=== PATIENT | female | born 1980 | race African-American/Black ===

== ENCOUNTER 2018-09-24 17:20 | Emergency (ER) | payer OTHER ==
[~2018-09-24] VITALS: Ht 175.3 cm; Wt 87.2 kg
[2018-09-24 17:53] VITALS: BP 125/75
[2018-09-24] MEDS ORDERED: METOCLOPRAMIDE HCL 10 MG/2 ML VIAL. IV ONE (18:45)
[2018-09-24] MEDS ORDERED: IOHEXOL 300 MG/ML 75 ML VIAL. IV ONE (19:00)
[2018-09-24] MEDS ORDERED: KETOROLAC 15 MG/ML VIAL. IV ONE (19:00)
[2018-09-24] MEDS ORDERED: IV NORMAL SALINE 1,000ML 1,000 ML IV ONE ×2 (19:00)
[2018-09-24 19:25] LABS: BILIRUBIN,URINE NEG (NEG); CLARITY,URINE HAZY; COLOR,URINE YELLOW; GLUCOSE,URINE NEG (NEG); NITRITE,URINE NEG (NEG); UROBILINOGEN,URINE 0.2 mg/dL (0.2 mg/dL)
[2018-09-24 19:26] LABS: BACTERIA,URINE FEW /HPF (0-FEW); SQUAMOUS EPITHELIAL CELL,UR OCC /LPF; WBC,URINE 0 /HPF (0-4)
[2018-09-24 19:44] LABS: WHITE BLOOD COUNT 4.3 x10^3/uL (4.0-11.0)
[2018-09-24 19:45] LABS: HEMOGLOBIN 11.6 g/dL (12.0-15.5); MEAN CORPUSCULAR HEMOGLOBIN 25 pg (25-35); MEAN CORPUSCULAR HGB CONC 31 g/dL (31-37); MEAN CORPUSCULAR VOLUME 80 fL (79-100); PLATELET COUNT 269 x10^3/uL (140-400); RED CELL DISTRIBUTION WIDTH 15.5 % (11.5-14.5)
[2018-09-24 19:46] LABS: BASO % 1 % (0-3); EOS # 0.1 x10^3/uL (0.0-0.7); EOS % 3 % (0-3); LYMPH # 1.6 x10^3/uL (1.0-4.8); LYMPH % 38 % (24-48); MONO # 0.3 x10^3/uL (0.0-1.1); MONO % 8 % (0-9); NEUT # 2.2 x10^3uL (1.8-7.7); NEUT % 51 % (31-73)
--- NOTE | 2018-09-24 19:48 | PHYS DOC ---
Past History Past Medical History: Cancer, Hypertension, Other (PCOS) Past Surgical History: No Surgical History Alcohol Use: None Drug Use: None Adult General Chief Complaint Chief Complaint: ABDOMINAL PAIN HPI HPI Patient is a 38-year-old female with a past medical history of colorectal cancer and PCOS who presents with 1 week of increased groin pain that radiates to her lower back and sacrum. She describes the pain is crampy, dull, achy, and constant. She rates the pain as a 7 out of 10 in intensity. She has tried ibuprofen 600 mg twice a day with minimal relief of pain. In addition, she reports brown colored spotting over this same time. Her last menstrual period began on 05 September and ended 11 September. In addition to these symptoms she reports increased dizziness and nausea over the last 2 days. She reports several urinary tract infections and irritable bowel syndrome-like symptoms ever since she was diagnosed with colon cancer and subsequently had her sigmoid colon resected. She reports subjective fever and chills over the last 2 days. She denies any vomiting, shortness of breath, or chest pain. Reports also with some low back pain with radiation down leg. Review of Systems Review of Systems Constitutional: Reports subjective fever and chills Eyes: Denies redness or eye pain HENT: Denies nasal congestion or sore throat Respiratory: Denies cough or shortness of breath Cardiovascular: Denies chest pain or palpitations GI: Denies abdominal pain. Reports nausea, but no vomiting : Crampy pelvic pain b/l, radiating to lower back. Mild, brown discharge. Musculoskeletal: lower back/sacral pain. Integument: Denies rash or skin lesions Neurologic: Reports headache that is consistent with chronic headaches, focal weakness or sensory changes Complete systems were reviewed and found to be within normal limits, except as documented in this note. Current Medications Current Medications Current Medications Medications (Trade) Dose Ordered Sig/Phil Start Time Stop Time Status Last Admin Dose Admin Iohexol (Omnipaque 300 Mg/ml) 75 ml 1X ONCE 09/24/18 19:00 09/24/18 19:01 DC Ketorolac Tromethamine (Toradol 15mg Vial) 15 mg 1X ONCE 09/24/18 19:00 09/24/18 19:01 DC 09/24/18 19:01 15 MG Metoclopramide HCl (Reglan Vial) 10 mg 1X ONCE 09/24/18 18:45 09/24/18 18:55 DC 09/24/18 19:01 10 MG Sodium Chloride 1,000 ml @ 1,000 mls/hr 1X ONCE 09/24/18 19:00 09/24/18 19:59 Allergies Allergies Allergies Coded Allergies Type Severity Reaction Last Updated Verified acetaminophen Allergy Unknown RASH 09/24/18 Yes hydromorphone Allergy Unknown 09/24/18 Yes Physical Exam Physical Exam Constitutional: Well developed, well nourished, no acute distress, non-toxic appearance HENT: Normocephalic, atraumatic, oropharynx moist Eyes: PERRL, EOMI, conjunctiva normal, no discharge Neck: Normal range of motion, no tenderness, supple Cardiovascular: Heart rate normal, regular rhythm Lungs & Thorax: Bilateral breath sounds clear to auscultation, no wheezing Abdomen: Soft, right lower quadrant pain on palpation [employer]: Plant Care Worker RN, External genitalia normal, scant brown discharge noted in vaginal vault, no CMT, right adenexal fullness and tenderness on palpation noted Skin: Warm, dry, no erythema, no rash Back: Right paraspinal lumbar tenderness, no CVA tenderness Extremities: No tenderness, ROM intact, no edema Neurologic: Alert and oriented X 3, normal motor function, normal sensory function, no focal deficits noted Psychologic: Affect normal, judgement normal, mood normal Current Patient Data Vital Signs Vital Signs Date Time Temp Pulse Resp B/P (MAP) Pulse Ox O2 Delivery O2 Flow Rate FiO2 09/24/18 17:53 98.1 101 18 98 Room Air Lab Results Laboratory Tests Test 09/24/18 18:55 Urine Collection Type Unknown Urine Color Yellow Urine Clarity Hazy Urine pH 6.0 Urine Specific Fabens 1.025 Urine Protein Neg (NEG-TRACE) Urine Glucose (UA) Neg mg/dL (NEG) Urine Ketones (Stick) Neg mg/dL (NEG) Urine Blood Large (NEG) Urine Nitrite Neg (NEG) Urine Bilirubin Neg (NEG) Urine Urobilinogen Dipstick 0.2 mg/dL (0.2 mg/dL) Urine Leukocyte Esterase Neg (NEG) Urine RBC 3-5 /HPF (0-2) Urine WBC 0 /HPF (0-4) Urine Squamous Epithelial Cells Occ /LPF Urine Bacteria Few /HPF (0-FEW) EKG EKG [] Radiology/Procedures Radiology/Procedures PROCEDURE: CT ABD PELV W/ IV CONTRST ONLY CT abdomen and pelvis with contrast. HISTORY: Right lower quadrant pain, cramping, nausea, chills CT scan of the abdomen and pelvis was done using Omnipaque contrast. Lung bases are clear. There is no effusion. A liver lesion is not identified. Spleen and adrenal glands are normal. Pancreas is normal in appearance. There is no mass or hydronephrosis in the kidneys. There is no adenopathy or ascites. There is moderate stool at the rectum. There are densities throughout the colon something the patient ingested. There is no small bowel obstruction. Appendix is normal. Uterus and left ovary are normal. The right ovary is anterior to the uterus with a prominent cyst measuring 5.2 x 3.5 x 4.2 cm. There is no calcified gallstone or gallbladder wall thickening. IMPRESSION: 1. Normal appendix. 2. Prominent right ovarian cyst anterior to the uterus. Electronically signed by: Osmar Odell MD (09/24/2018 8:41 PM) [facility] DICTATED AND SIGNED BY: OSMAR ODELL MD DATE: 09/24/182040 CC: HARRY,ANKUR; JESS RIOS DO ~ PROCEDURE: US PELVIS W/TV Transabdominal and transvaginal ultrasound the pelvis. HISTORY: Right adnexal pain Transabdominal ultrasound was used to evaluate the bladder. There is a large cyst anterior to the uterus cephalad to the bladder measuring 5.2 x 3.1 cm. The right ovary is along the superior margin of the cyst. There is flow in the right ovary with color imaging and Doppler. Transvaginal imaging was performed for further evaluation. There are multiple nabothian cysts at the cervix. Uterus is normal in size and appearance. Endometrium was 2 mm. Right ovary measured 1.5 x 1.6 x 1.3 cm. The prominent ovarian cyst is noted extending off the margin of the ovary. There is not evidence of torsion. Left ovary was normal measuring 2.6 x 1.4 x 1.5 cm. There is flow in the left ovary with color imaging and Doppler. IMPRESSION: 1. Normal uterus with nabothian cysts at the cervix. 2. Normal left ovary. 3. Prominent cyst extending off the right ovary, there is flow in the right ovary without torsion. Electronically signed by: Osmar Odell MD (09/24/2018 9:25 PM) [facility] DICTATED AND SIGNED BY: OSMAR ODELL MD DATE: 09/24/182124 CC: PCP,NO; JESS RIOS DO ~[] Course & Med Decision Making Course & Med Decision Making Patient is a 38 year-old female with past medical history of colorectal cancer and PCOS who presents with crampy pelvic pain of 1 week duration. Due to patient risk factors and right lower quadrant tenderness to palpation on exam, CT scan of the abdomen and pelvis was ordered which showed a right ovarian cyst, but no other concerning abnormalities. Ultrasound was also ordered and did not show ovarian torsion, or any other abnormalities. IV Toradol was administered to help control pain. Zofran and famotidine also given. Patient stable for discharge with outpatient follow-up with PCP. Discussed findings and plan with patient and family, who acknowledge understanding and agreement. Dragon Disclaimer Dragon Disclaimer This electronic medical record was generated, in whole or in part, using a voice recognition dictation system. Departure Departure: Impression: Primary Impression: Abdominal pain Additional Impressions: Ovarian cyst Back pain Disposition: 01 HOME, SELF-CARE Condition: STABLE Referrals: PCP,ANKUR (PCP) Patient Instructions: Abdominal Pain (Nonspecific), Back Pain, Adult, [id number], Ovarian Cyst, [id number], Sciatica, [id number] Scripts Ondansetron (ONDANSETRON ODT) 4 Mg Tab.rapdis 1 TAB PO PRN Q6-8HRS PRN for NAUSEA, #16 TAB Prov: JESS RIOS DO 09/24/18 Orphenadrine Citrate (ORPHENADRINE CITRATE) 100 Mg Tablet.er 1 TAB PO BID PRN for MUSCLE PAIN, #14 TAB 0 Refills Prov: JESS RIOS DO 09/24/18 Hydrocodone/Ibuprofen (HYDROCODONE-IBUPROFEN 7.5-200 ) 1 Each Tablet 1 TAB PO PRN Q6HRS PRN for PAIN, #14 TAB 0 Refills Prov: JESS RIOS DO 09/24/18 Problem Qualifiers Primary Impression: Abdominal pain Abdominal location: right lower quadrant Qualified Codes: R10.31 - Right lower quadrant pain Additional Impressions: Ovarian cyst Laterality: right Qualified Codes: N83.201 - Unspecified ovarian cyst, right side Back pain Back pain location: low back pain Chronicity: acute Back pain laterality: right Sciatica presence: with sciatica Sciatica laterality: sciatica of right side Qualified Codes: M54.41 - Lumbago with sciatica, right side JESS RIOS DO Sep 24, 2018 19:48
[2018-09-24 20:11] LABS: U PREG PATIENT NEGATIVE (NEG)
[2018-09-24 20:14] LABS: ALBUMIN 3.3 g/dL (3.4-5.0); ALBUMIN/GLOBULIN RATIO 0.8 (1.0-1.7); CALCIUM 9.4 mg/dL (8.5-10.1); CREATININE 1.1 mg/dL (0.6-1.0); GFR 66.6; MAGNESIUM 1.7 mg/dL (1.8-2.4); POTASSIUM 3.2 mmol/L (3.5-5.1); TOTAL BILIRUBIN 0.2 mg/dL (0.2-1.0); TOTAL PROTEIN 7.3 g/dL (6.4-8.2)
--- NOTE | 2018-09-24 20:44 | RAD ---
CT abdomen and pelvis with contrast. HISTORY: Right lower quadrant pain, cramping, nausea, chills CT scan of the abdomen and pelvis was done using Omnipaque contrast. Lung bases are clear. There is no effusion. A liver lesion is not identified. Spleen and adrenal glands are normal. Pancreas is normal in appearance. There is no mass or hydronephrosis in the kidneys. There is no adenopathy or ascites. There is moderate stool at the rectum. There are densities throughout the colon something the patient ingested. There is no small bowel obstruction. Appendix is normal. Uterus and left ovary are normal. The right ovary is anterior to the uterus with a prominent cyst measuring 5.2 x 3.5 x 4.2 cm. There is no calcified gallstone or gallbladder wall thickening. IMPRESSION: 1. Normal appendix. 2. Prominent right ovarian cyst anterior to the uterus. Electronically signed by: Osmar Murphy MD (09/24/2018 8:41 PM) [facility]
--- NOTE | 2018-09-24 21:28 | RAD ---
Transabdominal and transvaginal ultrasound the pelvis. HISTORY: Right adnexal pain Transabdominal ultrasound was used to evaluate the bladder. There is a large cyst anterior to the uterus cephalad to the bladder measuring 5.2 x 3.1 cm. The right ovary is along the superior margin of the cyst. There is flow in the right ovary with color imaging and Doppler. Transvaginal imaging was performed for further evaluation. There are multiple nabothian cysts at the cervix. Uterus is normal in size and appearance. Endometrium was 2 mm. Right ovary measured 1.5 x 1.6 x 1.3 cm. The prominent ovarian cyst is noted extending off the margin of the ovary. There is not evidence of torsion. Left ovary was normal measuring 2.6 x 1.4 x 1.5 cm. There is flow in the left ovary with color imaging and Doppler. IMPRESSION: 1. Normal uterus with nabothian cysts at the cervix. 2. Normal left ovary. 3. Prominent cyst extending off the right ovary, there is flow in the right ovary without torsion. Electronically signed by: Osmar Murphy MD (09/24/2018 9:25 PM) [facility]
[2018-09-24] MEDS ORDERED: HYDR-1179 PO (22:35)
[2018-09-24] MEDS ORDERED: ORPH-16 PO (22:35)
[2018-09-24] MEDS ORDERED: ONDA4TAB12 PO (22:53)
[2018-09-27 01:07] LABS: CHLAMYDIA PROBE Negative (Negative)
== END 2018-09-24 23:00 | disposition home or self-care (01) ==
LOC: ER 17:20
DX: N83.201 Unspecified ovarian cyst, right side (principal); M54.41 Lumbago with sciatica, right side; E28.2 Polycystic ovarian syndrome; I10 Essential (primary) hypertension; G89.29 Other chronic pain; R51 Headache; R42 Dizziness and giddiness; Z85.038 Personal history of other malignant neoplasm of large intestine; Z85.048 Personal history of other malignant neoplasm of rectum, rectosigmoid junction, and anus; Z88.6 Allergy status to analgesic agent; Z88.5 Allergy status to narcotic agent
CPT/HCPCS: 36415; 74177; 76830; 76856; 80053; 81001; 81025; 83690; 83735; 85025; 87491; 87591; 96361; 96374; 96375; 99285; J1885; J2765; J3010; Q0111; Q9967; J7030